=== PATIENT | female | born 1985 ===

== ENCOUNTER 2025-04-02 13:59 | Outpatient (CLI) | payer SELFPAY ==
--- NOTE | ~2025-04-02 | US_ITS ---
EXAMINATION: US OB <= 14 weeks fetus DATE: 04/02/2025 14:36 INDICATION: with inconclusive viability TECHNIQUE: Real-time pelvic ultrasound utilizing both a transvaginal and transabdominal probe was performed. The interpreting radiologist was not present for the study. COMPARISON: None. FINDINGS: The uterus measures 11.0 x 8.1 x 8.7 cm. There is an intrauterine gestational with single pole. The crown rump length measures 3.2 cm, which correlates with an estimated gestational age of 10 weeks and 0 days. heart motion is identified measuring 163 beats per minute (bpm) by M-mode Doppler. The right ovary is not visualized. The left ovary measures 2.8 x 2.8 x 2.4 cm. 1.6 similar anechoic corpus luteum cyst in the left ovary. Vascular flow on 1005 at the left ovary on color Doppler. There is no free fluid in the pelvis. IMPRESSION: 1. Single living fetus with heart rate of 163 bpm. 2. Gestational age by ultrasound of 10 weeks 0 day(s) +/- 6 day(s) with ultrasound estimated date of delivery (UBALDO) of 10/29/2025. Reviewed, dictated and finalized at location A. APPLICATIONS REPRESENTATIVE IMPRESSION: 1. Single living fetus with heart rate of 163 bpm. 2. Gestational age by ultrasound of 10 weeks 0 day(s) +/- 6 day(s) with ultras ound estimated date of delivery (UBALDO) of 10/29/2025.
== END 2025-04-02 14:00 | disposition home or self-care (01) ==
DX: O36.80X0 Pregnancy with inconclusive fetal viability, not applicable or unspecified (principal); Z3A.10 10 weeks gestation of pregnancy
CPT/HCPCS: 76801